=== PATIENT | male | born 1975 | race Hispanic/Latino ===

== ENCOUNTER 2023-05-18 03:19 | Emergency (ER) | payer SELFPAY ==
[2023-05-18] MEDS ORDERED: Ondansetron ODT 4 MG TAB ONE (03:45)
[2023-05-18] MEDS ORDERED: Morphine 4 MG/ML VIAL ONE (03:51)
[2023-05-18] MEDS ORDERED: Ondansetron PF 4 MG/2 ML Vial ONE (03:51)
[2023-05-18 04:08] LABS: #Basophils 0.03 10x3/uL (0.0-0.2); %Basophils 0.3 % (0.0-1.0); %Eosinophils 1.2 % (0.0-10.0); %Lymphocytes 21.8 % (21.0-51.0); %Monocytes 5.7 % (0.0-10.0); %Neutrophils 70.7 % (42.0-75.0); Hematocrit 44.3 % (42.0-52.0); Hemoglobin 15.1 g/dL (14.0-18.0); Mean Corpuscular HGB CONC 34.1 g/dL (32.0-36.0); Mean Corpuscular Hemoglobin 30.8 pg (27.0-31.0); Mean Corpuscular Volume 90.4 fL (78.0-98.0); Mean Platelet Volume 9.3 fL (7.4-10.4); Platelet Count 323 10x3/uL (130-400); RBC Distribution Width 13.9 % (11.5-14.5)
[2023-05-18 04:25] LABS: ALT (SGPT) 32 U/L (8-55); AST (SGOT) 34 U/L (5-34); Albumin 4.4 g/dL (3.5-5.0); Alkaline Phosphatase 92 U/L (40-110); Anion Gap 14 mmol/L (10-20); BUN (Urea Nitrogen) 9 mg/dL (8.9-20.6); Bilirubin, Total 0.6 mg/dL (0.2-1.2); Calc. Creatinine Clearance 0 mL/min (70-130); Calcium 9.4 mg/dL (7.8-10.44); Carbon Dioxide 24 mmol/L (22-29); Chloride 102 mmol/L (98-107); Estimated GFR 113; Globulin 4.7 g/dL (2.4-3.5); Glucose 153 mg/dL (70-105); Lipase 53 U/L (8-78); Potassium 3.6 mmol/L (3.5-5.1); Protein, Total 9.1 g/dL (6.0-8.3); Sodium 136 mmol/L (136-145)
[2023-05-18 04:27] LABS: Troponin I Less than 0.010 ng/mL (< 0.028)
[2023-05-18 05:24] LABS: Bacteria/HPF None Seen HPF (None Seen); Bilirubin Negative (Negative); Blood, Urine Negative (Negative); CAUTI Indications for Culture Pelvic or flank pain; Clarity Clear (Clear); Glucose, Urine (Dipstick) Normal (Negative); Ketone, Urine Negative (Negative); Leukocyte Negative Leu/uL (Negative); Nitrite Negative (Negative); Protein, Urine (Dipstick) 70 mg/dL (Neg-Trace); RBC/HPF 0-3 HPF (0-3); Specific Gravity, Urine 1.012 (1.002-1.036); Squamous Epithelial None Seen HPF (0-3); Urobilinogen Normal mg/dL (Less than 2); WBC/HPF 0-3 HPF (0-3); pH, Urine 7.5 (5.0-9.0)
[2023-05-18 05:29] LABS: Urine Culture Reflex No No
[2023-05-18 06:56] LABS: Lactic Acid 0.9 mmol/L (0.5-2.2)
[2023-05-18] MEDS ORDERED: Iopamidol-370 76% 500 ML MDV (1 ML CHARGE) ONE (10:41)
== END 2023-05-18 06:35 | disposition home or self-care (01) ==
LOC: ERS 03:19
DX: K80.20 Calculus of gallbladder without cholecystitis without obstruction (principal); Z75.8 Other problems related to medical facilities and other health care; Z55.6 Problems related to health literacy
CPT/HCPCS: 36415; 36416; 74177; 80053; 81001; 83605; 83690; 83880; 84484; 85025; 93005; 96361; 96374; 96375; J2270; J2405; Q0162